=== PATIENT | male | born 1980 | race Caucasian/White ===

== ENCOUNTER 2021-09-29 21:20 | Emergency (ER) | payer BC ==
[2021-09-29] MEDS ORDERED: Sodium Chloride 0.9% 10 ML Syringe FLUSH PRN (21:46)
[2021-09-29] MEDS ORDERED: GI Cocktail Oral Solution 30 ML PO ONE (21:46)
[2021-09-29] MEDS ORDERED: Ondansetron 4 MG/2 ML SDV IVPUSH ONE (21:56)
[2021-09-29 22:22] LABS: ANION GAP 12.9 mmol/L (5-15); CHLORIDE,CL 101 mmol/L (98-107); SODIUM,NA 139 mmol/L (136-145)
== END 2021-09-29 22:56 | disposition home or self-care (01) ==
LOC: VM.ED 21:20
DX: K29.00 Acute gastritis without bleeding (principal); F15.10 Other stimulant abuse, uncomplicated
CPT/HCPCS: 74176; 80053; 83605; 84484; 85025; 85652; 86140; 93005; 96374; 99283; 99284-25; A9270-GY; J2405

== ENCOUNTER 2024-01-13 19:06 | Emergency (ER) | payer BC, MEDICAID ==
[2024-01-13] MEDS: Ketorolac 30 MG/ML SDV IM ONE (20:08)
[2024-01-13] MEDS: methylPREDNISolone Sodium Succinate 125 MG/2 ML SDV IM ONE (20:08)
== END 2024-01-13 20:23 | disposition home or self-care (01) ==
LOC: VM.ED 19:06
DX: M25.551 Pain in right hip (principal); Z88.0 Allergy status to penicillin
CPT/HCPCS: 96372; 99283; J1885; J2930